=== PATIENT | female | born 1960 | race Asian ===

== ENCOUNTER 2016-06-03 19:53 | Emergency (ER) | payer OTHER ==
[~2016-06-03] VITALS: Ht 162.6 cm; Wt 59.0 kg
[2016-06-03 21:05] VITALS: BP 102/58
--- NOTE | 2016-06-03 22:14 | NUR ---
TO ER BED 4
--- NOTE | 2016-06-03 22:20 | NUR ---
Patient being evaluated by physician at bedside.
[2016-06-03] MEDS ORDERED: BACITRACIN OINT 500 UNITS/GM PKT TP ONE (22:25)
--- NOTE | 2016-06-03 22:49 | NUR ---
PATIENT PRESENTS TO ED WITH DOG BITE WOUNDS TO BL CALVES AND LT HAND . PT STATES HER DOGS WERE FIGHTING AND SHE ATTEMPTED TO SEPERATE THEM . DENIES N/V/D; SKIN IS PINK/WARM/DRY; AAOX4 WITH EVEN AND STEADY GAIT; LUNGS CLEAR BL; HR EVEN AND REGULAR; PT DENIES ANY FEVER, CP, SOB, OR COUGH AT THIS TIME; PATIENT STATES PAIN OF 2/10 AT THIS TIME; VSS; PATIENT POSITIONED FOR COMFORT; HOB ELEVATED; BEDRAILS UP X2; BED DOWN. ER MD MADE AWARE OF PT STATUS.
[2016-06-03 23:04] VITALS: BP 115/72
--- NOTE | 2016-06-03 23:05 | NUR ---
Patient discharged with v/s stable. Written and verbal after care instructions given and explained. Patient alert, oriented and verbalized understanding of instructions. Ambulatory with steady gait. All questions addressed prior to discharge. ID band removed. Patient advised to follow up with PMD. Rx of MOTRIN AND AUGMENTIN 875MG PO BID WITH MEALS given. Patient educated on indication of medication including possible reaction and side effects. Opportunity to ask questions provided and answered. AT BEDSIDE AT THIS TIME
== END 2016-06-03 23:04 | disposition home or self-care (01) ==
LOC: MED 19:53
DX: S61.032A Puncture wound without foreign body of left thumb without damage to nail, initial encounter (principal); S81.832A Puncture wound without foreign body, left lower leg, initial encounter; S81.831A Puncture wound without foreign body, right lower leg, initial encounter; I10 Essential (primary) hypertension; W54.0XXA Bitten by dog, initial encounter; Y93.89 Activity, other specified; Y92.89 Other specified places as the place of occurrence of the external cause; Y99.8 Other external cause status
CPT/HCPCS: 73130; 73590; 73610; 90471; 90715; 99284

== ENCOUNTER 2016-12-04 00:30 | Emergency (ER) | payer OTHER ==
[~2016-12-04] VITALS: Ht 170.2 cm; Wt 59.0 kg
[2016-12-04 00:56] VITALS: BP 127/90
[2016-12-04] MEDS: KETOROLAC 60 MG/2 ML VIAL IM ONE (01:38)
[2016-12-04] MEDS: HYDROmorphone PFS 2 MG/ML SYR IM ONE (01:38)
[2016-12-04] MEDS: diphenhydrAMINE 50 MG/ML VIAL IM ONE (01:38)
[2016-12-04 03:02] VITALS: BP 128/83
== END 2016-12-04 03:02 | disposition home or self-care (01) ==
LOC: MED 00:30
DX: S22.42XA Multiple fractures of ribs, left side, initial encounter for closed fracture (principal); I10 Essential (primary) hypertension; W01.10XA Fall on same level from slipping, tripping and stumbling with subsequent striking against unspecified object, initial encounter; Y93.89 Activity, other specified; Y92.091 Bathroom in other non-institutional residence as the place of occurrence of the external cause; Y99.8 Other external cause status
CPT/HCPCS: 71250; 74150; 96372; 99284; J1170; J1200; J1885